=== PATIENT | male | born 1970 | race Caucasian/White ===

== ENCOUNTER 2018-08-05 11:30 | Emergency (ER) | payer OTHER ==
[2018-08-05 12:10] VITALS: BP 125/84
--- NOTE | 2018-08-05 12:52 | UC ---
Throat Pain/Nasal Neo HPI - HPI Summary HPI Summary: PATIENT HAS HAD MILD SORE THROAT FOR THE PAST COUPLE OF DAYS WHICH FEELS WORSE TODAY. HAS MILD COUGH AND CONGESTION WELL. NO FEVER, NAUSEA/VOMITING. IS CONCERNED ABOUT STREP HIS WAS DIAGNOSED WITH STREP LAST WEEK. HE IS TRAVELING TO [place] LATER TODAY FOR [employer]. - History of Current Complaint Chief Complaint: UCRespiratory Stated Complaint: SORE THROAT Time Seen by Provider: 08/05/18 12:15 Hx Obtained From: Patient Onset/Duration: Gradual Onset, Lasting Days, Still Present Severity: Mild Pain Intensity: 2 Pain Scale Used: 0-10 Numeric Cough: Nonproductive Associated Signs & Symptoms: Positive: Nasal Discharge. Negative: Fever - Allergies/Home Medications Allergies/Adverse Reactions: Allergies Allergy/AdvReac Type Severity Reaction Status Date / Time No Known Allergies Allergy Verified 08/05/18 12:10 Home Medications: Home Medications Acetaminophen/Diphenhydramine [Tylenol Pm Ex-Strength Caplet] 1 each PO [History] Melatonin 5 mg PO 08/05/18 [History] PMH/Surg Hx/FS Hx/Imm Hx Previously Healthy: Yes - Surgical History Surgical History: None - Family History Known Family History: Positive: Non-Contributory - Social History Alcohol Use: Occasionally Substance Use Type: None Smoking Status (MU): Never Smoked Tobacco Review of Systems All Other Systems Reviewed And Are Negative: Yes Constitutional: Positive: Negative ENT: Positive: Sore Throat, Nasal Discharge Respiratory: Positive: Cough Cardiovascular: Positive: Negative Gastrointestinal: Positive: Negative Physical Exam Triage Information Reviewed: Yes Appearance: Well-Appearing, No Pain Distress, Well-Nourished Vital Signs: Initial Vital Signs Temp 98.4 F 08/05/18 12:07 Pulse 78 08/05/18 12:07 Resp 18 08/05/18 12:07 BP 125/84 08/05/18 12:07 Pulse Ox 96 08/05/18 12:07 Laboratory Tests 08/05/18 12:15 Group A Strep Rapid Negative Vital Signs Reviewed: Yes Eyes: Positive: Conjunctiva Clear ENT: Positive: Hearing grossly normal, Pharynx normal, TMs normal. Negative: Pharyngeal erythema, Tonsillar swelling, Tonsillar exudate, Hoarse voice Neck: Positive: Supple, Nontender, No Lymphadenopathy Respiratory Exam: Normal Cardiovascular Exam: Normal Abdomen Description: Positive: Soft Musculoskeletal: Positive: No Edema Neurological: Positive: Alert Psychological: Positive: Age Appropriate Behavior Skin: Negative: Rashes Throat Pain/Nasal Course/Dx - Course Course Of Treatment: PAT[facility] HE WILL REMAIN FOR THE NEXT 3 MONTHS HE IS ON S[employer]BATICAL. 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 WILL GIVE A COURSE OF AMOXICILLIN FOR HIM TO TAKE SHOULD HIS SYMPTOMS NOT IMPROVE EXPECTED OVER THE NEXT WEEK OR SO. ADVISED PATIENT THAT HIS SYMPTOMS MAY STILL BE VIRAL AND THAT THE ANTIBIOTICS MAY OR MAY NOT HELP HIM. HE VERBALIZES UNDERSTANDING AND IS IN AGREEMENT WITH THIS PLAN OF CARE. - Differential Dx/Diagnosis Provider Diagnosis: Acute pharyngitis Discharge - Sign-Out/Discharge Documenting (check all that apply): Patient Departure All imaging exams completed and their final reports reviewed: No Studies - Discharge Plan Condition: Stable Disposition: HOME Prescriptions: Amoxicillin PO (*) [Amoxicillin 500 MG CAP*] 500 mg PO Q12H #20 cap Patient Education Materials: Pharyngitis (ED) Referrals: No Primary Care Phys,NOPCP [Primary Care Provider] - Additional Instructions: STREP TEST NEGATIVE. YOUR SYMPTOMS ARE LIKELY VIRALLY MEDIATED AND SHOULD RESOLVE ON THEIR OWN WITH TIME. NO INDICATION FOR ANTIBIOTICS AT PRESENT HOWEVER GIVEN YOUR UPCOMING TRAVEL WILL PRESCRIBE A COURSE OF ANTIBIOTICS. IF YOUR SYMPTOMS DO NOT IMPROVE EXPECTED GO AHEAD AND TAKE THE MEDICINE. IF YOU START IT BE SURE TO TAKE TO TAKE IT FOR THE FULL COURSE. REST, HYDRATE, OTC MEDS NEEDED. SEEK FOLLOW-UP IF NEEDED. - Billing Disposition and Condition Condition: STABLE Disposition: Home
== END 2018-08-05 12:54 | disposition home or self-care (01) ==
LOC: UCEAST 11:30
DX: J02.9 Acute pharyngitis, unspecified (principal); J34.89 Other specified disorders of nose and nasal sinuses; R05 Cough
CPT/HCPCS: 87651; 99212; G0463